=== PATIENT | female | born 1965 | race Two or more races ===

== ENCOUNTER 2023-11-16 04:22 | Emergency (ER) | payer OTHER ==
[~2023-11-16] VITALS: Ht 154.9 cm; Wt 84.1 kg
[2023-11-16] MEDS ORDERED: METF-1185 PO (04:27)
[2023-11-16] MEDS ORDERED: LISI30TA4 PO (04:27)
[2023-11-16 04:36] VITALS: BP 173/82; PULSE 98; RESP 18; TEMP 98.1
[2023-11-16 04:45] LABS: GLUCOMETER DEV NAME(LOC) ERT.5; GLUCOSE,POINT OF CARE 172 MG/DL (70-110)
[2023-11-16] MEDS: KETOROLAC TROMETHAMINE 60 MG/2 ML VIAL IM ONE (05:16)
[2023-11-16] MEDS: PERTUSS(ACELL),DIPH,TET/PF 0.5 ML SYRINGE [ADULT] IM. ONE (05:17)
[2023-11-16] MEDS ORDERED: IBUP-1492 PO (05:42)
== END 2023-11-16 06:07 | disposition home or self-care (01) ==
LOC: EMS 04:23
DX: S05.11XA Contusion of eyeball and orbital tissues, right eye, initial encounter (principal); S80.01XA Contusion of right knee, initial encounter; S90.02XA Contusion of left ankle, initial encounter; E11.9 Type 2 diabetes mellitus without complications; I10 Essential (primary) hypertension; W01.0XXA Fall on same level from slipping, tripping and stumbling without subsequent striking against object, initial encounter; Y93.89 Activity, other specified; Y92.89 Other specified places as the place of occurrence of the external cause; Y99.8 Other external cause status
CPT/HCPCS: 99284; 82962; 73130; 90715; 90471; 96372; J1885